=== PATIENT | female | born 1980 | race Caucasian/White ===

== ENCOUNTER → 2022-03-20 09:32 | Outpatient (CLI) | payer OTHER, SELFPAY ==
[2022-03-20 11:50] LABS: COVID19 -Nasal RAPID Negative (Negative)
== END ==
PROVIDERS: Visit Provider Surgery
DX: Z01.812 Encounter for preprocedural laboratory examination (principal); Z20.822 Contact with and (suspected) exposure to COVID-19
CPT/HCPCS: 87635; C9803

== ENCOUNTER 2022-03-21 11:22 | Day surgery (SDC) | payer OTHER, SELFPAY ==
[2022-03-15 14:31] VITALS: BMI 22.6
[2022-03-21] VITALS (7 sets, daily range): BP systolic 113–128; BP diastolic 62–81; PULSE 73–78; RESP 12–17; TEMP 36.1–36.8; O2SAT 100; BMI 22.6
--- NOTE | 2022-03-21 | PATH_ITS ---
[facility] Accession Number: [id number] . 01 Material submitted: . breast - LEFT BREAST MASS . 01 Clinical history: . LEFT BREAST MASS - LONG STITCH LATERAL, SHORT STITCH SUPERIOR . 01 Diagnosis: Left Breast Mass, Oriented Lumpectomy: Benign breast parenchyma with fibrocystic changes, duct dilation, apocrine metaplasia, focal fibroadenomatoid type changes and dense fibrous tissue. No atypical hyperplasia, neoplasm, in situ or invasive carcinoma identified. MRV 03/23/2022 1644 Local . 01 Electronically signed: . Aggie Chilel MD, Pathologist NPI- [id number] . 01 Gross description: . Received: In formalin, labeled with the patient's name and left breast mass suture, long lateral, short superior. Specimen: Three breast lumpectomies, one oriented and two unoriented. Lump #1: Rand, roughened external surface consistent with cautery artifact. Weight: 3 grams. Measurement: 2.9 cm anterior to posterior, 1.7 cm medial to lateral, and 1.3 cm superior to inferior. Skin Ellipse: Absent. Wire: Absent. Margins: Oriented with a long suture lateral and a short suture superior per the requisition. Inked as follows: Anterior yellow, posterior black, medial blue, lateral green, superior orange, and inferior red. Sliced: Anterior to posterior into seven 3 mm slices. Lesions: No discrete lesion is identified. The cut surface is diffusely rand and firm to rubbery with minimal yellow adipose tissue identified. No biopsy clips or sites are located. Lump #2: Unoriented, rand roughened external surface with a smooth rand area possibly consistent with disrupted cystic structure measuring 1.0 x 0.7 cm. Weight: 2 grams. Measurement: 2.2 x 1.6 x 0.8 cm. Skin Ellipse: Absent. Wire: Absent. Margins: No orientation provided. External surface is inked blue. Sliced: Into five 3 mm slices. Lesion: No discrete lesion is identified. The cut surface is diffusely rand and firm to rubbery with minimal yellow adipose tissue identified. No biopsy clips or sites are located. Lump #3: Unoriented, rand, roughened external surface with a smooth rand area possibly consistent with disrupted cystic structure measuring 1.5 x 1.1 cm. Weight: Less than 1 gram. Measurement: 1.9 x 1.3 x 0.6 cm. Skin Ellipse: Absent. Wire: Absent. Margins: No orientation provided. External surface is inked black. Sliced: Into four 3 mm slices. Lesions: No discrete lesion is identified. The cut surface is diffusely rand and firm to rubbery with minimal yellow adipose tissue identified. No biopsy clips or sites are located. Fixation time: Removed on 03/21/2022, time removed and time in formalin not provided. Cold ischemic time cannot be calculated. Total fixation time is less than 72 hours. All three specimen are submitted entirely as follows: A1: Lump 1, entire slice 1, anterior margin perpendicular. A2: Lump 1, entire slice 2 to include superior, inferior, medial and lateral margins. A3: Lump 1, entire slice 3 to include superior, inferior, medial and lateral margins. A4: Lump 1, entire slice 4 to include superior, inferior, medial and lateral margins. A5: Lump 1, entire slice 5 to include superior, inferior, medial and lateral margins. A6: Lump 1, entire slice 6 to include superior, inferior, medial and lateral margins. A7: Lump 1, entire slice 7, posterior margin, perpendicular. A8: Lump 2, entire slice 1, perpendicular. A9: Lump 2, entire slice 2. A10: Lump 2, entire slice 3. A11: Lump 2, entire slice 4. A12: Lump 2, entire slice 5, perpendicular. A13: Lump 3, entire slice 1, perpendicular. A14: Lump 3, entire slice 2. A15: Lump 3, entire slice 3. A16: Lump 3, entire slice 4, perpendicular. Photographs taken, case discussed with Dr. Chilel. ([id number]) /MRV 03/22/2022 1347 Local . 01 Pathologist provided ICD-10: N63.20 . 01 CPT . 731577 Specimen Comment: A courtesy copy of this report has been sent to [phone] Performed at: 01 [facility] [address] [place] [address], [place], [place] [id number] MD Emanuel Lamar MD Phone: [phone]
--- NOTE | 2022-03-21 12:04 | PM.HP.1 ---
History of Present Illness History of Present Illness Date Patient Seen: 03/21/22 Time Patient Seen: 12:04 Chief complaint: Left Lumpectomy Narrative: 41-year-old woman with a painful left breast mass here for elective lumpectomy. In the interval since she was last seen December 2021 mass has overall decreased in size but remains palpable and uncomfortable. Patient History Medical History Hypothyroid Thigh lump Family & Social History Family History Father Hypertension Mother Hypertension Grandmother Breast cancer Colon cancer Social History: household members none Tobacco & Substance use: Smoking Status Never smoker alcohol intake frequency a few times a week Substance Use Type does not use Meds Home Medications and Allergies Home Medications Medication Instructions Recorded Confirmed Type levothyroxine [Synthroid] 100 mcg PO DAILY 12/29/21 03/21/22 History Allergies Allergy/AdvReac Type Severity Reaction Status Date / Time No Known Drug Allergies Allergy Unverified 12/29/21 10:07 Exam Vital Signs (past 8 hours): - 03/21/22 11:41 Temperature 98.2 F Pulse Rate 73 Respiratory Rate 16 Blood Pressure 128/81 Pulse Oximetry 100 Oxygen Delivery Method Room Air Oxygen Delivery Method Room Air Narrative Exam Narrative: General adult woman alert oriented no acute distress Left breast marked with my initials. Site of the mass is also noted Assessment & Plan Assessment & Plan narrative: 41-year-old woman here for a left lumpectomy for a painful left breast mass. Overview of the operation was again discussed with the patient. Operative risks including bleeding, infection, need for further operation dependent on pathology were discussed. Her questions have been answered and she is in agreement with this plan Time Spent With Patient Critical Care time: I spent a total of [] minutes of critical care time on this patient's care today; this time is exclusive of procedural time.
[2022-03-21] MEDS: LACTATED RINGERS 1,000 ML 100 ML IV ×2 (12:18→13:17)
[2022-03-21] MEDS: CEFAZOLIN 2 GM/100 ML PREMIX 100 ML IV (12:40)
--- NOTE | 2022-03-21 12:56 | SUR.OPER ---
Supine on padded OR bed, head on pillow, arms secured on padded arm boards at <90 degrees abduction, legs uncrossed, safety belt at thigh
[2022-03-21] MEDS: BUPIVACAINE 0.5% (PF) VIAL 30 ML INJ (13:14)
--- NOTE | 2022-03-21 13:34 | PM.OP.1 ---
Operative Date/Time/Diagnoses Date of procedure: 03/21/22 Time of procedure: 13:34 Pre-op diagnosis: Left breast mass Post-op diagnosis: same Procedure & Clinicians Procedure: Left lumpectomy Same procedure as scheduled: Yes Indications: Painful left breast Surgeon: Rodney Ruiz Click Yes if Unassisted: Yes Anesthesia Type: General Operative Notes Findings: Cystic structure Specimen(s): other (Left Breast mass. Culture from left breast) Estimated Blood Loss (mL): 20 Procedure in detail: They were brought to the operating room and placed supine on the table. Bilateral lower extremity compression devices were applied. They were intubated with an LMA. The received Ancef prior to skin incision. They were prepped and draped in sterile fashion. Time-out was performed. A curvilinear incision on the superior aspect of the left areola was made and subcutaneous tissues were divided. There was palpable mass within the left breast at approximately 12:00 p.m. position. Upon grasping the mass there was spontaneous drainage of brownish colored fluid which was sent for culture. The fibrotic mass approximately 2 cm was excised marked short stitch superior long stitch lateral. There was an additional area of fibrotic/cystic tissue adjacent to the mass which was also excised as well as what appeared to be the lining of a cystic structure. Hemostasis was achieved. Subcutaneous tissues were reapproximated with 3 0 Vicryl sutures skin closed with Vicryl followed by application of Dermabond. The counts were correct. They emerged from anesthesia and were transfered to recovery in stable condition. Complications: none Post-operative Condition: stable Disposition: same day surgery
[2022-03-21] MEDS: OXYCODONE IR 5 MG TABLET PO (14:02)
[2022-03-21] MEDS: ACETAMINOPHEN 325 MG TABLET PO (14:02)
== END 2022-03-21 14:45 | disposition home or self-care (01) ==
PROVIDERS: PCP Internal Medicine; Referring Provider Surgery; Visit Provider Surgery
PROC: (CPT 19301; principal; 2022-03-21 12:45)
DX: N63.20 Unspecified lump in the left breast, unspecified quadrant (principal)
CPT/HCPCS: 19301; 00404; 81025; 82962; 87070; 87075; 87205; J0690; J1100; J2405; J2704; J3010

== ENCOUNTER → 2022-06-01 08:02 | Outpatient (CLI) | payer OTHER, SELFPAY ==
[2022-06-01 08:27] LABS: COVID19 -Nasal RAPID Negative (Negative)
== END ==
PROVIDERS: PCP Internal Medicine; Visit Provider Obstetrics & Gynecology
DX: Z01.812 Encounter for preprocedural laboratory examination (principal); Z20.822 Contact with and (suspected) exposure to COVID-19
CPT/HCPCS: 87635

== ENCOUNTER 2022-06-01 08:35 | Day surgery (SDC) | payer OTHER, SELFPAY ==
[2022-05-29 08:15] VITALS: BMI 22.6
[2022-06-01] VITALS (9 sets, daily range): BP systolic 85–102; BP diastolic 47–68; PULSE 62–77; RESP 10–16; TEMP 36.2–36.5; O2SAT 11–100; BMI 22.6
--- NOTE | 2022-06-01 | PATH_ITS ---
[facility] Accession Number: [id number] No. of containers..01 Tissue . 01 Material submitted: . uterus - UTERUS, BILATERAL FALLOPIAN TUBES . 01 Diagnosis: Uterus and Fallopian Tubes, Supracervical Hysterectomy and Bilateral Salpingectomy: Endometrium: Inactive with progestin effect. Myometrium: Leiomyomata without significant atypia; adenomyosis. Serosa: Fibrovascular adhesions. Fallopian tubes: No significant pathologic abnormalities. [facility] 06/06/2022 1113 Local . 01 Electronically signed: . Loulou Coredro MD, Pathologist NPI- [id number] . 01 Gross description: . Received in formalin, labeled with the patient's name, , and uterus, bilateral fallopian tubes, and consists of a fragmented uterus (54 g, 10.2 x 4.7 x 3.5 cm in aggregate), with two attached, unoriented, fimbriated fallopian tubes (6.0 x 0.9 cm and 5.9 x 0.8 cm, respectively) with no cervix or additional adnexa. The presumed endometrium is anthony and velvety with no polyps or lesions identified and averages 0.1 cm thick. The serosa is anthony and smooth with no areas of hemorrhage or adhesion identified. Sectioning reveals pink-anthony myometrium with multiple well-circumscribed, white, whorled nodules measuring up to 2.6 cm in greatest dimension with no hemorrhage, necrosis, or additional lesions identified. The longer fallopian tube has congested smooth serosa with no cystic structures identified. Sectioning reveals an unremarkable stellate lumen. The shorter fallopian tube has congested smooth serosa with no cystic structures identified. Sectioning reveals an unremarkable stellate lumen. Logistics Solution Manager sections are submitted as follows: A1: Presumed endometrium. A2: Serosa. A3: Nodules. A4: Longer fallopian tube to include cross-sections with entire bisected fimbriae. A5: [place] fallopian tube to include cross-sections and entire bisected fimbriae. ([id number]) /FRR 06/02/2022 [facility]6 Local . 01 Pathologist provided ICD-10: D25.9 . 01 CPT . 201773 Specimen Comment: A courtesy copy of this report has been sent to [phone] Performed at: 01 [facility] [address] [place] [address], [place], [place] [id number] MD Emanuel Lamar MD Phone: [phone]
[2022-06-01] MEDS: SCOPOLAMINE 1 PATCH TOP (09:06)
[2022-06-01] MEDS: LACTATED RINGERS 1,000 ML 100 ML IV ×2 (09:11→11:27)
--- NOTE | 2022-06-01 09:39 | PM.HP.1 ---
History of Present Illness History of Present Illness Date Patient Seen: 06/01/22 Time Patient Seen: 09:39 Chief complaint: Bilateral Laparoscopic Supracervical Hysterectomy Narrative: Patient is a 41-year-old 0 who presents for a laparoscopic supracervical hysterectomy with bilateral salpingectomy. This is being done due to a fibroid uterus and abnormal uterine bleeding. Patient History Medical History (Updated 04/22/22 @ 22:58 by Zoya Luther MD) Hypothyroid Thigh lump Surgical History (Updated 05/02/22 @ 15:09 by Silvina Deng RN) History of lumpectomy of left breast (03/21/22) Family & Social History Family History Father Hypertension Mother Hypertension Grandmother Breast cancer Colon cancer Social History: household members none Tobacco & Substance use: Smoking Status Never smoker alcohol intake frequency a few times a week Substance Use Type does not use Meds Home Medications and Allergies Home Medications Medication Instructions Recorded Confirmed Type acetaminophen 325 mg capsule 650 mg PO QID PRN pain #60 caps 03/21/22 06/01/22 Rx (Tylenol) ibuprofen 200 mg tablet 400 mg PO Q6H #60 tabs 03/21/22 06/01/22 Rx oxycodone 5 mg tablet 5 mg PO Q4H PRN pain #20 tabs 04/22/22 05/02/22 Rx levothyroxine 100 mcg tablet 100 mcg PO DAILY 05/02/22 06/01/22 History Allergies Allergy/AdvReac Type Severity Reaction Status Date / Time No Known Drug Allergies Allergy Verified 06/01/22 09:00 Exam Vital Signs (past 8 hours): - 06/01/22 09:01 Temperature 97.5 F L Pulse Rate 62 Respiratory Rate 16 Blood Pressure 101/68 Pulse Oximetry 100 Oxygen Delivery Method Room Air Oxygen Delivery Method Room Air Narrative Exam Narrative: HEENT: No thyromegaly, no anterior cervical or supraclavicular lymphadenopathy. Lungs:Clear to auscultation bilaterally, no wheezes. Cardiovascular: Regular rate and rhythm, no murmurs, rubs, or gallops. Abdomen: No scars. No hepatosplenomegaly. No masses palpable. External genitalia: Normal Vagina: Normal Cervix: Normal Bimanual exam: 10 Week size uterus. Mobile. Extremities: No edema Assessment & Plan Assessment & Plan narrative: Assessment: 41-year-old 0 with a fibroid uterus and abnormal uterine bleeding Plan: Laparoscopic supracervical hysterectomy with bilateral salpingectomy The risks, benefits, and alternatives to the procedure were explained to the patient. The risks including bleeding, infection, injury to the bowel, bladder, or ureters. She understands these risks and agrees to proceed. A full par Q was held and consent form was signed. She also understands that there is a possibility of an open procedure. COVID-19 COVID-19 status: Negative Result date/Date tested (Pos, Neg/Pending): 06/01/22 Time Spent With Patient Time with patient: less than 30 minutes Critical Care time: I spent a total of [] minutes of critical care time on this patient's care today; this time is exclusive of procedural time.
--- NOTE | 2022-06-01 09:47 | PM.PREOP ---
Pre-operative Note COVID-19 COVID-19 status: Negative Result date/Date tested (Pos, Neg/Pending): 06/01/22 Criteria for continued procedure: Non-surgical alternatives not available or appropriate per current SOC Interval Note History & Physical reviewed/Exam performed by Physician: Yes Changes to H&P: No H&P completed within 30 days and has changed as indicated here:: 06/01/22
[2022-06-01] MEDS: CEFAZOLIN 2 GM/100 ML PREMIX 100 ML IV (09:55)
[2022-06-01] MEDS: ACETAMINOPHEN IV 1,000 MG/100 ML VIAL 400 MG IV (10:05)
--- NOTE | 2022-06-01 10:46 | SUR.OPER ---
Lithotomy on padded OR bed. [place] Pad Positioner under torso. Head on pillow, arms padded and tucked at sides. Legs secured in padded yellow fins stirrups.
[2022-06-01] MEDS: BUPIVACAINE 0.5% W/ EPI (PF) 30 ML VIAL INJ (10:53)
[2022-06-01] MEDS: ROPIVACAINE 0.2% PF 2 MG/ML 20ML AMP 20 ML INJ (10:54)
--- NOTE | 2022-06-01 11:17 | PM.GYNOP.1 ---
Operative Date/Time/Diagnoses Date of procedure: 06/01/22 Time of procedure: 11:17 Pre-op diagnosis: Abnormal uterine bleeding Fibroid uterus Post-op diagnosis: same Procedure & Clinicians Procedure: Procedures Operation Date: 06/01/22 09:45 Actual Procedure Side Surgeon p Laparoscopic Supracervical Hysterectomy with bilateral salpingectomy Zoya Luther MD Indications: Abnormal uterine bleeding Fibroid uterus Surgeon: Zoya Luther Control Valve Mechanic: Aj Sawyer Anesthesia Type: General and Local Operative Notes Findings: 10 week size multi fibroid uterus Endometriosis of both ovaries and the right ovarian fossa Normal tubes Normal appendix Normal liver Closure Type: primary Specimen(s): left tube, right tube and uterus Applied: catheter (Removed at the end of the case) Estimated blood loss (mL): 5 Blood products transfused: none Procedure in detail: The patient was taken to the operating room where she was placed in the dorsal supine position. After adequate general endotracheal anesthesia was achieved, she was placed in the dorsal lithotomy position, and prepped and draped in the usual sterile fashion. A timeout was performed. A bivalve speculum was placed into the vagina and the anterior lip of the cervix grasped with a single-tooth tenaculum. The cervical os was sequentially dilated until the ZUMI uterine manipulator could pass easily into the endometrial cavity. The single-tooth tenaculum was removed from the anterior lip of the cervix, and the bivalve speculum was removed from the vagina. Attention was then turned to the abdomen where 6 mL of half percent Marcaine with epinephrine were injected in the umbilical fold. A 5 mm incision was made. The Verees needle was placed into the peritoneal cavity, and its placement confirmed by aspiration and drop test. The Verees needle was removed. A 5 mm trocar was placed without difficulty. 2 other incisions were made 4 cm later to the umbilicus after 5 mL of half percent Marcaine with epinephrine were injected. These were 5 mm incisions. Two 5 mm trocars were placed under direct visualization. The right tube was grasped with an atraumatic grasper. Using the Powerseal, the mesosalpinx was cauterized and cut all the way down to the cornua of the uterus. The cornua of the uterus was then grasped with an atraumatic grasper. The utero-ovarian ligaments were cauterized and cut. The round ligament and broad ligament was cauterized and cut with the Powerseal Hemostasis was achieved. The bladder flap was created using the Powerseal with cautery and cut custodial across. The uterine arteries on the right side were extensively cauterized with the Powerseal. All of this was repeated on the left side. The remainder of the bladder flap was created using the Powerseal, and the bladder taken down off the lower uterine segment and cervix. Using the Linaloop, the cervix was amputated from the uterus 2 cm above the uterosacral ligaments, after the ZUMI uterine manipulator was removed from the uterus and a moistened sponge stick was placed into the vagina. There was no bleeding noted on the cervix. 6 mL of half percent Marcaine with epinephrine were injected above the pubic symphysis. A 12 mm trocar was placed. An Endobag was placed through the suprapubic trocar and the uterus and tubes were placed into the Endobag. The trocar was removed. The uterus was grasped with a Charbel clamp. The Amilcar was placed into the endobag. The uterus and tubes were hand morcellated in approximately 5 pieces. The Endobag and Amilcar were removed from the peritoneal cavity. The pelvis was copiously irrigated with warm normal saline. No bleeding was noted. 20 cc of 0.2% Ropivicaine were placed over the pedicles The instruments were removed from the abdomen. The CO2 was allowed to escape. The suprapubic incision was closed on the fascia with 0 Vicryl. Two simple interrupted sutures with 3-0 Vicryl were placed in the subcutaneous layer. All of the incisions were closed with 4-0 Biosyn in a subcuticular fashion. The moistened sponge stick was removed from the vagina. Sponge, lap, and instrument counts were correct x-2. The patient tolerated the procedure well, was taken to PACU in stable condition. Complications: none Post-operative Condition: stable Disposition: PACU Plan for aftercare: Home after recovery
[2022-06-01] MEDS: ONDANSETRON 4 MG/2 ML INJ IV (11:36)
[2022-06-01] MEDS: KETOROLAC 30 MG/ML VIAL IV (11:37)
--- NOTE | 2022-06-01 13:10 | SUR.PHASEII ---
1300: Pt ambulated to BR, denies any distress, dressing C/D/I, voided 200 mL clear yellow urine. Pt reports ready to discharge home. Report given to HERLINDA Martinez will hand off care now.
== END 2022-06-01 13:13 | disposition home or self-care (01) ==
PROVIDERS: PCP Internal Medicine; Referring Provider Obstetrics & Gynecology; Visit Provider Obstetrics & Gynecology
PROC: 0UT94ZL Resection of Uterus, Supracervical, Percutaneous Endoscopic Approach (ICD-10-PCS; CPT 58542; principal; 2022-06-01 09:45)
DX: D25.9 Leiomyoma of uterus, unspecified (principal); N80.103 Endometriosis of bilateral ovaries, unspecified depth; Z20.822 Contact with and (suspected) exposure to COVID-19; N73.6 Female pelvic peritoneal adhesions (postinfective); Z01.812 Encounter for preprocedural laboratory examination
CPT/HCPCS: 58542; 81025; 87635; J0131; J0690; J1100; J1885; J2250; J2405; J2704; J2795; J3010